=== PATIENT | female | born 1935 | race Caucasian/White ===

== ENCOUNTER 2022-11-28 11:17 | Emergency (ER) | payer OTHER, MEDICAID ==
[~2022-11-28] VITALS: Ht 162.6 cm; Wt 59.0 kg
[2022-11-28 11:17] VITALS: BP_SYST 118
--- NOTE | 2022-11-28 11:19 | NUR ---
BROUGHT IN BY [facility] AND PLACED IN BED #6, TRIAGED, WILL ASSUME CARE
--- NOTE | 2022-11-28 11:22 | NUR ---
PT STATES THAT SHE FELL YESTERDAY AND INJURY TO RIGHT HIP AND LOWER BACK/BUTTOCKS. PT STATES SHE HAS HAD A BAD RASH TO RIGHT SIDE OF FACE AND SCALP FOR LAST FEW DAYS. DENIES ANY PAIN AT THIS TIME, BUT STATES SHE HAD HEADACHE AND PAIN WHEN RASH STARTEFD. STATES SHE HAS HAD RASH FOR ALMOST A WEEK
[2022-11-28] MEDS ORDERED: VITD2000 PO (11:36)
[2022-11-28] MEDS ORDERED: BUDE6HFA INH (11:36)
[2022-11-28] MEDS ORDERED: LOSA25TA3 PO (11:36)
[2022-11-28] MEDS ORDERED: METO50TA7 PO (11:36)
--- NOTE | 2022-11-28 11:36 | NUR ---
Medication reconciliation completed with information provided by [facility]. Any prior medication reconciliation on file was reviewed and corrected.
--- NOTE | 2022-11-28 12:20 | NUR ---
FAMILY CONTACT ROSALEE KWONG (DAUGHTER & POA) [phone]
[2022-11-28 12:46] LABS: BASOPHILS % (AUTO) 0.3 % (0.0-2.0); EOSINOPHILS % (AUTO) 0.4 % (0.0-4.0); HEMATOCRIT 39.6 % (36-48); HEMOGLOBIN 13.5 g/dL (12.0-16.0); LYMPHOCYTES # (AUTO) 1.8 K/uL (1.0-5.5); LYMPHOCYTES % (AUTO) 20.2 % (20.5-51.5); MEAN CORPUSCULAR HEMOGLOBIN 29 pg (27-31); MEAN CORPUSCULAR HGB CONC 34 % (32-36); MEAN CORPUSCULAR VOLUME 87 fL (79.0-98.0); MONOCYTES # (AUTO) 0.7 K/uL (0.0-1.0); MONOCYTES % (AUTO) 8.3 % (1.7-9.3); NEUTROPHILS # (AUTO) 6.2 K/uL (1.8-7.7); NEUTROPHILS % (AUTO) 70.8 % (40.0-70.0); PLATELET COUNT (AUTO) 186 K/uL (130-430); RED BLOOD CELL COUNT(AUTO) 4.57 MIL/uL (4.2-6.2); RED CELL DISTRIBUTION WIDTH 14.1 % (9.0-15.0); WHITE BLOOD COUNT (AUTO) 8.7 K/uL (4.8-10.8)
[2022-11-28 13:00] LABS: ANION GAP 4 (5-15); CALCIUM 8.9 mg/dL (8.4-11.0); CHLORIDE 92 mmol/L (98-107); CREATININE 0.53 mg/dL (0.55-1.30); GLUCOSE 112 mg/dL (70-99); UREA NITROGEN, BLOOD 22 mg/dL (8-21)
[2022-11-28 13:05] LABS: ALANINE AMINOTRANSFERASE 19 U/L (12-78); ALBUMIN 3.4 g/dL (3.4-4.8); ASPARTATE AMINOTRANSFERASE 21 U/L (10-37); TOTAL BILIRUBIN 0.7 mg/dL (0.0-1.0)
[2022-11-28] MEDS ORDERED: ACYCLOVIR IV 500 MG in D5W 100 ML IV ONE (14:00)
--- NOTE | 2022-11-28 14:30 | NUR ---
COVID SWAB SENT TO LAB
[2022-11-28] MEDS ORDERED: ACYCLOVIR SODIUM 50 MG/ML VIAL IV ONE (14:48)
[2022-11-28] MEDS ORDERED: NS 500 ML IV ONE (15:45)
[2022-11-28] MEDS ORDERED: PRED20TA PO (15:48)
[2022-11-28] MEDS ORDERED: ACYC400T19 PO (15:48)
--- NOTE | 2022-11-28 15:51 | NUR ---
CALL PLACED TO [facility] FOR TRANSPORT BACK TO FACILITY. [facility] DOES NOT HAVE TRANSPORATION AT THIS TIME. CALL PLACED TO FAMILY YARON AND SHE WILL COME GET HER WITHIN THE HOUR
--- NOTE | 2022-11-28 16:41 | NUR ---
REPORT RECEIVED FROM YOSEPH LAKE
--- NOTE | 2022-11-28 16:50 | NUR ---
Patient given written and verbal discharge instructions and verbalizes understanding. ER MD discussed with patient the results and treatment provided. Patient in stable condition. ID arm band removed. IV catheter removed intact and dressing applied, no active bleeding. Rx of ACYCLOVIR AND PREDNISONE given. Patient educated on pain management and to follow up with PMD. Pain Scale 0/10 Opportunity for questions provided and answered. Medication side effect fact sheet provided.
[2022-11-28 17:02] VITALS: BP_SYST 111
== END 2022-11-28 16:50 | disposition home or self-care (01) ==
LOC: SED 11:17
DX: M54.50 Low back pain, unspecified (principal); B02.9 Zoster without complications; E87.1 Hypo-osmolality and hyponatremia; M19.90 Unspecified osteoarthritis, unspecified site; J44.9 Chronic obstructive pulmonary disease, unspecified; I10 Essential (primary) hypertension; Z79.899 Other long term (current) drug therapy; Z20.822 Contact with and (suspected) exposure to COVID-19
CPT/HCPCS: 99285; 96365; 72131; 71045; 87426; 80053; 83880; 85025; 84484; 36415; 72100; 72170; 76376; J0133; J7040